=== PATIENT | female | born 1995 | race American Indian/Alaskan Native ===

== ENCOUNTER 2018-03-24 09:03 | Emergency (ER) | payer MEDICAID ==
[2018-03-24 09:03] VITALS: BMI 26.7
--- NOTE | 2018-03-24 09:37 | ED PDOC ---
Arrival/HPI - General Chief Complaint: Cough, Cold, Congestion Historian: Patient - History of Present Illness Narrative History of Present Illness (Text): 03/24/18 09:25 23 year old female with no significant past medical history presents to the Emergency department complaining of cough and rhinorrhea since three days. Patient reports intermittent shortness of breath at night secondary to cough. Patient denies any fevers, chills, headache, dizziness, chest pain, dyspnea on exertion, abdominal pain, nausea, vomiting, diarrhea, back pain, neck pain, or any other complaints. Time/Duration: < week Symptom Onset: Gradual Symptom Course: Unchanged Activities at Onset: Light Context: Home Past Medical History - Provider Review Nursing Documentation Reviewed: Yes - Infectious Disease Hx of Infectious Diseases: None - Past Medical History Past Medical History: No Previous - Gastrointestinal Hx Hemorrhoids: Yes - Psychiatric Hx Substance Use: No - Past Surgical History Past Surgical History: No Previous - Anesthesia Hx Anesthesia: No Hx Anesthesia Reactions: No Hx Malignant Hyperthermia: No - Suicidal Assessment Feels Threatened In Home Enviroment: No Family/Social History - Physician Review Nursing Documentation Reviewed: Yes Family/Social History: Unknown Family HX Smoking Status: Never Smoked Hx Alcohol Use: No Hx Substance Use: No Allergies/Home Meds Allergies/Adverse Reactions: Allergies No Known Allergies Allergy (Verified 12/16/17 18:50) Review of Systems - Physician Review All systems were reviewed & negative as marked: Yes - Review of Systems Constitutional: absent: Fevers ENT: Rhinorrhea Respiratory: Cough Cardiovascular: absent: Chest Pain Gastrointestinal: absent: Diarrhea, Nausea, Vomiting Musculoskeletal: absent: Back Pain, Neck Pain Neurological: absent: Headache, Dizziness Physical Exam Appearance: Positive for: Well-Appearing, Non-Toxic, Comfortable Pain Distress: None Mental Status: Positive for: Alert and Oriented X 3 - Systems Exam Head: Present: Atraumatic, Normocephalic Pupils: Present: PERRL Extroacular Muscles: Present: EOMI Conjunctiva: Present: Normal Neck: Present: Normal Range of Motion Respiratory/Chest: Present: Clear to Auscultation, Good Air Exchange. No: Respiratory Distress, Accessory Muscle Use Cardiovascular: Present: Regular Rate and Rhythm, Normal S1, S2. No: Murmurs Abdomen: No: Tenderness, Distention, Peritoneal Signs Upper Extremity: Present: Normal Inspection. No: Cyanosis, Edema Lower Extremity: Present: Normal Inspection. No: Edema Neurological: Present: GCS=15, CN II-XII Intact, Speech Normal Skin: Present: Warm, Dry, Normal Color. No: Rashes Psychiatric: Present: Alert, Oriented x 3, Normal Insight, Normal Concentration Medical Decision Making ED Course and Treatment: 03/24/18 09:25 Impression: 23 year old female presents to the Emergency department complaining of cough and runny nose. Differential Diagnosis included but are not limited to: -- Rhinosinusitis -- Flu -- Viral URI Plan: -- Rapid flu -- Reassess and disposition Prior Visits: Notes and results from previous visits were reviewed. Progress Notes: 03/24/18 10:15 Rapid flu test is negative. - Lab Interpretations Lab Results: Lab Results 03/24/18 09:44: Influenza Typ A,B (EIA) Negative for flu a/b I have reviewed the lab results: Yes - Scribe Statement The provider has reviewed the documentation as recorded by the Scribe Alecia bruno with Natalie All medical record entries made by the Scribe were at my direction and personally dictated by me. I have reviewed the chart and agree that the record accurately reflects my personal performance of the history, physical exam, medical decision making, and the department course for this patient. I have also personally directed, reviewed, and agree with the discharge instructions and disposition. Disposition/Present on Arrival - Present on Arrival Any Indicators Present on Arrival: No History of DVT/PE: No History of Uncontrolled Diabetes: No Urinary Catheter: No History of Decub. Ulcer: No History Surgical Site Infection Following: None - Disposition Have Diagnosis and Disposition been Completed?: Yes Diagnosis: Acute rhinosinusitis Disposition: HOME/ ROUTINE Disposition Time: 10:23 Patient Plan: Discharge Condition: STABLE Discharge Instructions (ExitCare): Sinusitis, Adult (DC) Print Language: MALTESE Additional Instructions: All medical record entries made by the Scribe were at my direction and personally dictated by me. I have reviewed the chart and agree that the record accurately reflects my personal performance of the history, physical exam, medical decision making, and the department course for this patient. I have also personally directed, reviewed, and agree with the discharge instructions and disposition. Referrals: Maylin Blount MD [Medical Doctor] - Follow up with primary [facility] [Outside] - Follow up with primary Forms: [facility] (Green[place]ic), WORK NOTE
[2018-03-24 10:23] VITALS: BP 127/84; PULSE 76; RESP 18; TEMP 98.1; O2SAT 97
== END 2018-03-24 10:55 | disposition home or self-care (01) ==
LOC: ED 09:03
DX: J01.90 Acute sinusitis, unspecified (principal)